=== PATIENT | female | born 1950 | race Caucasian/White ===

== ENCOUNTER 2024-10-29 13:12 | Outpatient (CLI) | payer MEDICARE, BC, SELFPAY | END 2024-10-29 13:13 | disposition home or self-care (01) | LOC: WOUND 13:18 | PROVIDERS: PCP Family Medicine; Visit Provider Nurse Practitioner Family | DX: M27.8 Other specified diseases of jaws (principal); T86.821 Skin graft (allograft) (autograft) failure; T81.328A Disruption or dehiscence of closure of other specified internal operation (surgical) wound, initial encounter; E11.65 Type 2 diabetes mellitus with hyperglycemia; Y84.2 Radiological procedure and radiotherapy as the cause of abnormal reaction of the patient, or of later complication, without mention of misadventure at the time of the procedure; Z79.4 Long term (current) use of insulin; Z79.84 Long term (current) use of oral hypoglycemic drugs; Z79.85 Long-term (current) use of injectable non-insulin antidiabetic drugs | CPT/HCPCS: 97597; G0463 ==

== ENCOUNTER 2024-11-05 15:06 | Outpatient (CLI) | payer MEDICARE, BC, SELFPAY ==
--- NOTE | 2024-11-05 16:15 | CRLHL7_ITS ---
For Patients: As a result of the Cures Act, medical imaging exams and procedure reports are released immediately into your electronic medical record. You may view this report before your referring provider. If you have questions, please contact your health care provider. Indication: Prior atelectasis and history of trach Comparison: None available. Technique: PA and lateral views of the chest Findings: There is no focal consolidation, effusion, or pneumothorax. Postoperative changes status post placement of vagal nerve stimulator device. The cardiomediastinal silhouette is within normal limits. The bony thorax is grossly intact. Impression: No acute cardiopulmonary abnormality. Dictated by Devendra Winn MD @ 11/05/2024 4:54:26 PM (Electronically Signed)
== END 2024-11-05 15:07 | disposition home or self-care (01) ==
PROVIDERS: PCP Family Medicine; Visit Provider Nurse Practitioner Family
DX: M27.8 Other specified diseases of jaws (principal); T86.821 Skin graft (allograft) (autograft) failure; T81.328A Disruption or dehiscence of closure of other specified internal operation (surgical) wound, initial encounter; E11.65 Type 2 diabetes mellitus with hyperglycemia; Z79.4 Long term (current) use of insulin; Z79.84 Long term (current) use of oral hypoglycemic drugs; Z79.85 Long-term (current) use of injectable non-insulin antidiabetic drugs; Y84.2 Radiological procedure and radiotherapy as the cause of abnormal reaction of the patient, or of later complication, without mention of misadventure at the time of the procedure; Z01.818 Encounter for other preprocedural examination
CPT/HCPCS: 71046; G0463

== ENCOUNTER 2024-11-13 07:48 | Outpatient (CLI) | payer MEDICARE, BC, SELFPAY | END 2024-11-13 07:49 | disposition home or self-care (01) | LOC: WOUND 07:48 | PROVIDERS: PCP Family Medicine; Visit Provider Nurse Practitioner Family | DX: M27.8 Other specified diseases of jaws (principal); T86.821 Skin graft (allograft) (autograft) failure; T81.328A Disruption or dehiscence of closure of other specified internal operation (surgical) wound, initial encounter; E11.65 Type 2 diabetes mellitus with hyperglycemia; Z79.4 Long term (current) use of insulin; Z79.84 Long term (current) use of oral hypoglycemic drugs; Z79.85 Long-term (current) use of injectable non-insulin antidiabetic drugs; Y84.2 Radiological procedure and radiotherapy as the cause of abnormal reaction of the patient, or of later complication, without mention of misadventure at the time of the procedure | CPT/HCPCS: 82962; 97597; G0277 ==

== ENCOUNTER 2024-11-20 07:52 | Outpatient (CLI) | payer MEDICARE, BC, SELFPAY | END 2024-11-20 07:53 | disposition home or self-care (01) | LOC: WOUND 07:52 | PROVIDERS: PCP Family Medicine; Visit Provider Nurse Practitioner Family | DX: M27.8 Other specified diseases of jaws (principal); T86.821 Skin graft (allograft) (autograft) failure; T81.328A Disruption or dehiscence of closure of other specified internal operation (surgical) wound, initial encounter; E11.65 Type 2 diabetes mellitus with hyperglycemia; Z79.4 Long term (current) use of insulin; Z79.84 Long term (current) use of oral hypoglycemic drugs; Z79.85 Long-term (current) use of injectable non-insulin antidiabetic drugs; Y84.2 Radiological procedure and radiotherapy as the cause of abnormal reaction of the patient, or of later complication, without mention of misadventure at the time of the procedure | CPT/HCPCS: 11043; 82962; G0277; G0463 ==

== ENCOUNTER 2024-11-27 07:53 | Outpatient (CLI) | payer MEDICARE, BC, SELFPAY | END 2024-11-27 07:54 | disposition home or self-care (01) | LOC: WOUND 07:53 | PROVIDERS: PCP Family Medicine; Visit Provider Nurse Practitioner Family | DX: M27.8 Other specified diseases of jaws (principal); T86.821 Skin graft (allograft) (autograft) failure; T81.328A Disruption or dehiscence of closure of other specified internal operation (surgical) wound, initial encounter; E11.65 Type 2 diabetes mellitus with hyperglycemia; Z79.4 Long term (current) use of insulin; Z79.84 Long term (current) use of oral hypoglycemic drugs; Z79.85 Long-term (current) use of injectable non-insulin antidiabetic drugs; Y84.2 Radiological procedure and radiotherapy as the cause of abnormal reaction of the patient, or of later complication, without mention of misadventure at the time of the procedure | CPT/HCPCS: 11043; 82962; G0277 ==

== ENCOUNTER 2024-12-04 08:29 | Outpatient (CLI) | payer MEDICARE, BC, SELFPAY | END 2024-12-04 08:30 | disposition home or self-care (01) | LOC: WOUND 08:29 | PROVIDERS: PCP Family Medicine; Visit Provider Nurse Practitioner Family | DX: M27.8 Other specified diseases of jaws (principal); T86.821 Skin graft (allograft) (autograft) failure; T81.328A Disruption or dehiscence of closure of other specified internal operation (surgical) wound, initial encounter; E11.65 Type 2 diabetes mellitus with hyperglycemia; Z79.4 Long term (current) use of insulin; Z79.84 Long term (current) use of oral hypoglycemic drugs; Z79.85 Long-term (current) use of injectable non-insulin antidiabetic drugs; Y84.2 Radiological procedure and radiotherapy as the cause of abnormal reaction of the patient, or of later complication, without mention of misadventure at the time of the procedure | CPT/HCPCS: 11043; 82962; 97597; G0277 ==

== ENCOUNTER 2024-12-06 09:30 | Outpatient (RCR) | payer MEDICARE, BC, SELFPAY | END 2024-12-06 23:59 | disposition home or self-care (01) | LOC: WOUND 09:30 | PROVIDERS: PCP Family Medicine; Visit Provider Family Medicine | DX: M27.8 Other specified diseases of jaws (principal); T86.821 Skin graft (allograft) (autograft) failure; T81.328A Disruption or dehiscence of closure of other specified internal operation (surgical) wound, initial encounter; E11.65 Type 2 diabetes mellitus with hyperglycemia; Z79.4 Long term (current) use of insulin; Z79.84 Long term (current) use of oral hypoglycemic drugs; Z79.85 Long-term (current) use of injectable non-insulin antidiabetic drugs; Y84.2 Radiological procedure and radiotherapy as the cause of abnormal reaction of the patient, or of later complication, without mention of misadventure at the time of the procedure | CPT/HCPCS: 82962; G0277 ==

== ENCOUNTER 2024-12-11 08:26 | Outpatient (CLI) | payer MEDICARE, BC, SELFPAY | END 2024-12-11 08:27 | disposition home or self-care (01) | LOC: WOUND 08:26 | PROVIDERS: PCP Family Medicine; Visit Provider Nurse Practitioner Family | DX: M27.8 Other specified diseases of jaws (principal); T86.821 Skin graft (allograft) (autograft) failure; T81.328A Disruption or dehiscence of closure of other specified internal operation (surgical) wound, initial encounter; E11.65 Type 2 diabetes mellitus with hyperglycemia; Z79.4 Long term (current) use of insulin; Z79.84 Long term (current) use of oral hypoglycemic drugs; Z79.85 Long-term (current) use of injectable non-insulin antidiabetic drugs; Y84.2 Radiological procedure and radiotherapy as the cause of abnormal reaction of the patient, or of later complication, without mention of misadventure at the time of the procedure | CPT/HCPCS: 11043; 82962; 97597; G0277 ==

== ENCOUNTER 2024-12-18 08:25 | Outpatient (CLI) | payer MEDICARE, BC, SELFPAY | END 2024-12-18 08:26 | disposition home or self-care (01) | LOC: WOUND 08:25 | PROVIDERS: PCP Family Medicine; Visit Provider Nurse Practitioner Family | DX: M27.8 Other specified diseases of jaws (principal); T86.821 Skin graft (allograft) (autograft) failure; T81.328A Disruption or dehiscence of closure of other specified internal operation (surgical) wound, initial encounter; E11.65 Type 2 diabetes mellitus with hyperglycemia; Z79.4 Long term (current) use of insulin; Z79.84 Long term (current) use of oral hypoglycemic drugs; Y84.2 Radiological procedure and radiotherapy as the cause of abnormal reaction of the patient, or of later complication, without mention of misadventure at the time of the procedure | CPT/HCPCS: 11042; 82962; G0277 ==

== ENCOUNTER 2024-12-25 08:21 | Outpatient (CLI) | payer MEDICARE, BC, SELFPAY | END 2024-12-25 08:22 | disposition home or self-care (01) | LOC: WOUND 08:21 | PROVIDERS: PCP Family Medicine; Visit Provider Nurse Practitioner Family | DX: T81.328A Disruption or dehiscence of closure of other specified internal operation (surgical) wound, initial encounter (principal); T86.821 Skin graft (allograft) (autograft) failure; M27.8 Other specified diseases of jaws; E11.65 Type 2 diabetes mellitus with hyperglycemia; Z79.84 Long term (current) use of oral hypoglycemic drugs | CPT/HCPCS: 11042; 82962; G0277 ==

== ENCOUNTER 2025-01-01 08:16 | Outpatient (CLI) | payer MEDICARE, BC, SELFPAY | END 2025-01-01 08:17 | disposition home or self-care (01) | LOC: WOUND 08:16 | PROVIDERS: PCP Family Medicine; Visit Provider Nurse Practitioner Family | DX: T86.821 Skin graft (allograft) (autograft) failure (principal); T81.328A Disruption or dehiscence of closure of other specified internal operation (surgical) wound, initial encounter; M27.8 Other specified diseases of jaws; E11.65 Type 2 diabetes mellitus with hyperglycemia; Z79.84 Long term (current) use of oral hypoglycemic drugs; Z79.4 Long term (current) use of insulin; Z79.85 Long-term (current) use of injectable non-insulin antidiabetic drugs; Y84.2 Radiological procedure and radiotherapy as the cause of abnormal reaction of the patient, or of later complication, without mention of misadventure at the time of the procedure | CPT/HCPCS: 11042; 82962; G0277 ==

== ENCOUNTER 2025-01-03 09:30 | Outpatient (RCR) | payer MEDICARE, BC, SELFPAY | END 2025-01-05 23:59 | disposition home or self-care (01) | LOC: WOUND 09:30 | PROVIDERS: PCP Family Medicine; Visit Provider Physician Assistant | DX: M27.8 Other specified diseases of jaws (principal); T86.821 Skin graft (allograft) (autograft) failure; E11.65 Type 2 diabetes mellitus with hyperglycemia; Z79.4 Long term (current) use of insulin; Z79.84 Long term (current) use of oral hypoglycemic drugs | CPT/HCPCS: 82962; G0277 ==

== ENCOUNTER 2025-01-08 08:18 | Outpatient (CLI) | payer MEDICARE, BC, SELFPAY | END 2025-01-08 08:19 | disposition home or self-care (01) | LOC: WOUND 08:18 | PROVIDERS: PCP Family Medicine; Visit Provider Nurse Practitioner Family | DX: T86.821 Skin graft (allograft) (autograft) failure (principal); T81.328A Disruption or dehiscence of closure of other specified internal operation (surgical) wound, initial encounter; M27.8 Other specified diseases of jaws; E11.65 Type 2 diabetes mellitus with hyperglycemia; Z79.84 Long term (current) use of oral hypoglycemic drugs; Z79.4 Long term (current) use of insulin; Z79.85 Long-term (current) use of injectable non-insulin antidiabetic drugs; Y84.2 Radiological procedure and radiotherapy as the cause of abnormal reaction of the patient, or of later complication, without mention of misadventure at the time of the procedure | CPT/HCPCS: 11042; 82962; G0277 ==

== ENCOUNTER 2025-01-28 10:30 | Outpatient (RCR) | payer MEDICARE, BC, SELFPAY | END 2025-02-05 23:59 | disposition home or self-care (01) | LOC: WOUND 10:30 | PROVIDERS: PCP Family Medicine; Visit Provider Nurse Practitioner Family | DX: M27.8 Other specified diseases of jaws (principal); T86.821 Skin graft (allograft) (autograft) failure; E11.65 Type 2 diabetes mellitus with hyperglycemia; E16.2 Hypoglycemia, unspecified; Z79.4 Long term (current) use of insulin; Z79.84 Long term (current) use of oral hypoglycemic drugs | CPT/HCPCS: 82962; G0277 ==